=== PATIENT | female | born 1945 | race Caucasian/White ===

== ENCOUNTER 2016-11-17 10:32 | Emergency (ER) | payer OTHER ==
[~2016-11-17] VITALS: Ht 166.4 cm; Wt 62.2 kg
[~2016-11-17 10:32] MED LIST: ACIDOPHILUS1 EAC3 PO; DELTASONE1 MG PO; ECOTRIN325 MG PO; FOLVITE1 MG PO; KEFLEX500 MG PO; LANOXIN,DIGIT0.25 MG PO; METHOTREXATE2.5 M1 PO; MIACALCIN4 ML NS; MULTIVITAMIN1 EAC1 PO; NAPROXEN500 MG PO; ORENCIA125 MG/1 M SQ; ORENCIA250 MG/10 IV; OYSTER SHELL C500 M1 PO; PREDNISONE50 MG PO; SYNTHROID100 MCG PO; VITAMIN D400 INTUNI PO; XELJANZ5 MG PO; ZIAC 2.5/6.251 TAB PO
[2016-11-17] MEDS ORDERED: ASPIRIN325 MG PO (10:47)
[2016-11-17] MEDS ORDERED: METHOTREXATE2.5 MG PO (10:52)
[2016-11-17] MEDS ORDERED: PREDNISONE1 MG PO (10:53)
[2016-11-17] MEDS ORDERED: PREDNISONE5 MG PO (10:54)
[2016-11-17] MEDS ORDERED: FOLIC ACID1 MG PO (10:54)
[2016-11-17] MEDS ORDERED: ACTEMRA (10:55)
[2016-11-17] MEDS ORDERED: PRENATAL PLUS1 EAC5 PO (10:55)
[2016-11-17] MEDS ORDERED: ERGOCALCIF50000 UNIT PO (10:56)
[2016-11-17] MEDS ORDERED: VITAMIN D31000 UNIT PO (10:56)
[2016-11-17] MEDS ORDERED: BISOPROLOL FUMAR5 MG PO (10:56)
[2016-11-17] MEDS ORDERED: PROBIOTIC1 EAC2 PO (10:58)
[2016-11-17 11:49] LABS: INFLUENZA A VIRAL ANTIGEN NEGATIVE; INFLUENZA B VIRAL ANTIGEN NEGATIVE
[2016-11-17] MEDS ORDERED: VENTOLIN HFA18 GM IH (12:40)
[2016-11-17] MEDS ORDERED: ZITHROMAX Z-PA250 MG PO (12:40)
[2016-11-17 13:14] VITALS: BP 115/66
== END 2016-11-17 13:15 | disposition home or self-care (01) ==
LOC: EME 10:32
PROVIDERS: Nurse Practitioner Family
DX: J06.9 Acute upper respiratory infection, unspecified (principal); E03.9 Hypothyroidism, unspecified; Z88.6 Allergy status to analgesic agent; Z88.1 Allergy status to other antibiotic agents
CPT/HCPCS: 71020; 87502; 87651 90; 94640; 99281; 99284

== ENCOUNTER 2017-12-28 08:51 | Emergency (ER) | payer OTHER, BC ==
[~2017-12-28] VITALS: Ht 165.1 cm; Wt 59.6 kg
[~2017-12-28 08:51] MED LIST changes: +ACTEMRA; +ASPIRIN325 MG PO; +BISOPROLOL FUMAR5 MG PO; +ERGOCALCIF50000 UNIT PO; +FOLIC ACID1 MG PO; +METHOTREXATE2.5 MG PO; +PREDNISONE1 MG PO; +PREDNISONE5 MG PO; +PRENATAL PLUS1 EAC5 PO; +PROBIOTIC1 EAC2 PO; +VENTOLIN HFA18 GM IH; +VITAMIN D31000 UNIT PO; +ZITHROMAX Z-PA250 MG PO
[2017-12-28 09:48] LABS: HEMOGLOBIN 14.9 G/DL (11.9-15.5); MCH 33.9 PG (29.0-34.0); MCHC 34.7 G/DL (30.0-36.0); MCV 97.7 FL (83-99); PLATELET COUNT 123 K/uL (156-360); RBC DIS.WIDTH-CV 13.1 % (11.8-14.6); RBC DIS.WIDTH-SD 46.2 % (39-53); WHITE BLOOD COUNT 16.3 K/uL (4.1-10.2)
[2017-12-28 10:08] LABS: ALBUMIN 3.5 g/dL (3.2-4.8); CHLORIDE 107 mEq/L (99-109); POTASSIUM 3.7 mEq/L (3.7-5.4); SODIUM 140 mEq/L (136-147)
[2017-12-28 10:11] LABS: GLUCOSE 96 mg/dL (70-99); TOTAL PROTEIN 5.5 g/dL (6.4-8.3)
[2017-12-28 10:14] LABS: ALKALINE PHOSPHATASE 52 IU/L (3-129); CREATININE 0.8 mg/dL (0.6-1.3); GFR ESTIMATE (CALCULATED) > 59 mL/min/
[2017-12-28 10:15] LABS: UREA NITROGEN (BUN) 15 mg/dL (9-23)
[2017-12-28 10:16] LABS: AST (GOT) 21 IU/L (2-34)
[2017-12-28 10:17] LABS: ALT (GPT) 14 IU/L (3-49)
[2017-12-28 10:18] LABS: TROP-I INTERPRETATION NEGATIVE; TROPONIN-I < 0.01 ng/mL (0.0-0.30)
[2017-12-28] MEDS ORDERED: VENTOLIN HFA18 GM IH (11:54)
[2017-12-28] MEDS ORDERED: LEVAQUIN750 MG PO (11:54)
[2017-12-28 12:16] VITALS: BP 102/57
== END 2017-12-28 12:39 | disposition home or self-care (01) ==
LOC: EME 08:51
PROVIDERS: Nurse Practitioner Family
DX: J10.00 Influenza due to other identified influenza virus with unspecified type of pneumonia (principal); I48.91 Unspecified atrial fibrillation; E03.9 Hypothyroidism, unspecified; M06.9 Rheumatoid arthritis, unspecified; Z96.611 Presence of right artificial shoulder joint; Z79.82 Long term (current) use of aspirin; Z88.5 Allergy status to narcotic agent; Z88.8 Allergy status to other drugs, medicaments and biological substances
CPT/HCPCS: 71046; 80053; 83605; 84484; 85027; 87040; 87502; 93005; 94640; 99281; 99285; J2405; J7512

== ENCOUNTER 2018-03-14 10:30 | Emergency (ER) | payer OTHER, BC ==
[~2018-03-14] VITALS: Ht 162.6 cm; Wt 62.4 kg
[~2018-03-14 10:30] MED LIST changes: +LEVAQUIN750 MG PO
[2018-03-14 12:37] LABS: HEMATOCRIT 43.3 % (36.0-46.0); HEMOGLOBIN 14.6 G/DL (11.9-15.5); MCH 33.8 PG (29.0-34.0); MCHC 33.7 G/DL (30.0-36.0); MCV 100.2 FL (83-99); PLATELET COUNT 189 K/uL (156-360); RBC DIS.WIDTH-CV 13.9 % (11.8-14.6); RBC DIS.WIDTH-SD 50.4 % (39-53); RED BLOOD COUNT 4.32 M/uL (3.80-5.20); WHITE BLOOD COUNT 9.2 K/uL (4.1-10.2)
[2018-03-14 12:48] LABS: CHLORIDE 110 mEq/L (99-109); POTASSIUM 4.2 mEq/L (3.7-5.4); SODIUM 142 mEq/L (136-147)
[2018-03-14 12:50] LABS: GLUCOSE 96 mg/dL (70-99)
[2018-03-14 12:53] LABS: CREATININE 0.7 mg/dL (0.6-1.3); GFR ESTIMATE (CALCULATED) > 59 mL/min/
[2018-03-14 12:54] LABS: UREA NITROGEN (BUN) 25 mg/dL (9-23)
[2018-03-14 13:12] LABS: ERTH.SED.RATE < 1 MM/HR (0-30)
[2018-03-14 13:48] LABS: C-REACTIVE PROTEIN 1.1 MG/L (0-10)
[2018-03-14 14:08] VITALS: BP 150/70
== END 2018-03-14 14:10 | disposition home or self-care (01) ==
LOC: EME 10:30
PROVIDERS: Nurse Practitioner Family
DX: M06.9 Rheumatoid arthritis, unspecified (principal); M79.671 Pain in right foot; M19.071 Primary osteoarthritis, right ankle and foot; E03.9 Hypothyroidism, unspecified; I48.91 Unspecified atrial fibrillation; Z79.01 Long term (current) use of anticoagulants; Z79.82 Long term (current) use of aspirin; Z88.5 Allergy status to narcotic agent; Z88.6 Allergy status to analgesic agent
CPT/HCPCS: 73630; 80048; 85027; 85651; 86140; 93971; 99281; 99284

== ENCOUNTER → 2018-05-13 | Outpatient (CLI) | payer OTHER, BC | END | disposition home or self-care (01) | LOC: NUC 14:03 | DX: R93.7 Abnormal findings on diagnostic imaging of other parts of musculoskeletal system (principal); M25.572 Pain in left ankle and joints of left foot; M06.9 Rheumatoid arthritis, unspecified; Z98.890 Other specified postprocedural states | CPT/HCPCS: 78315; 78999; A9503 ==